=== PATIENT | male | born 1945 | race Caucasian/White ===

== ENCOUNTER 2018-05-20 11:31 | Emergency (ER) | payer MEDICARE, SELFPAY ==
[2018-05-20 11:35] VITALS: BP 108/69; PULSE 82; RESP 16; TEMP 36.2; O2SAT 100; BMI 19.2
[2018-05-20 11:51] VITALS: PULSE 77
--- NOTE | 2018-05-20 12:05 | ED.LOWEXIN ---
HPI - Extremity Injury (Lower) <CRESCENCIO Segundo - Last Filed: 05/20/18 22:25> General Chief Complaint: Extremity Injury, Lower Stated Complaint: fell on right side,bruised Time Seen by Provider: 05/20/18 12:05 History of Present Illness HPI Narrative: 72-year-old male here for complaint of redness and swelling to his right lower extremity status post fall several days ago. He reports increased redness and swelling to the anterior mendiola. He reports increased pain with ambulation and weight-bearing. No fevers no chills. No shortness of breath no chest pain. He denies any other injuries or concerns at this timeframe. No drainage from the leg. Related Data Home Medications Medication Instructions Recorded Confirmed divalproex 1 dose PO DIRECTED 05/20/18 05/24/18 aspirin [Aspir-81] 81 mg PO DAILY 05/24/18 05/24/18 cefdinir 300 mg PO Q12H PRN 05/24/18 05/24/18 ferrous sulfate, dried [Iron 160 mg PO DAILY 05/24/18 05/24/18 (dried)] furosemide 40 mg PO DAILY 05/24/18 05/24/18 levothyroxine 125 mcg PO DAILY 05/24/18 05/24/18 metronidazole [Flagyl] 250 mg PO TID PRN 05/24/18 05/24/18 pregabalin [Lyrica] 50 mg PO BID 05/24/18 05/24/18 vitamin A 10,000 unit PO DAILY 05/24/18 05/24/18 Previous Rx's Medication Instructions Recorded clindamycin HCl 300 mg PO QID #28 cap 05/20/18 Allergies Allergy/AdvReac Type Severity Reaction Status Date / Time shellfish derived Allergy Severe Anaphylaxis Verified 05/24/18 18:24 Review of Systems <CRESCENCIO Segundo - Last Filed: 05/20/18 22:25> Constitutional Denies chills, Denies fever(s), Denies lethargy and Denies weakness Eyes Denies change in vision, Denies eye discharge, Denies irritation and Denies loss of vision ENT Ears, Nose, Mouth, and Throat: Denies change in voice, Denies neck pain and Denies sore throat Cardiovascular Denies chest pain, Denies irregular heart rhythm, Denies lightheadedness, Denies palpitations, Denies dyspnea, Denies dyspnea on exertion and Denies orthopnea Respiratory Denies cough, Denies dyspnea, Denies dyspnea on exertion and Denies wheezing Gastrointestinal Gastrointestinal: Denies abdominal pain, Denies change in bowel habits, Denies diarrhea, Denies nausea and Denies vomiting Genitourinary Denies hematuria, Denies flank pain, Denies urinary incontinence and Denies urinary urgency Musculoskeletal Denies neck pain Comments: Right lower leg discomfort and swelling Integumentary/Breasts Denies pruritus, Denies erythema, Denies rash and Denies wounds Neurologic Denies confusion, Denies loss of vision and Denies weakness Psychiatric Denies anxiety, Denies confusion, Denies depression, Denies homicidal ideation and Denies suicidal ideation Endocrine Denies palpitations Hematologic/Lymphatic Denies easy bruising Allergic/Immunologic Denies wheezing Exam <CRESCENCIO Segundo - Last Filed: 05/20/18 22:25> Initial Vital Signs Initial Vital Signs: Vital Signs Temperature 97.1 F L 05/20/18 11:35 Pulse Rate 82 05/20/18 11:35 Respiratory Rate 16 05/20/18 11:35 Blood Pressure 108/69 05/20/18 11:35 Pulse Oximetry 100 05/20/18 11:35 Const General: cooperative and well developed Nutritional Appearance: well nourished Orientation: alert, awake, oriented x3 and not confused [facility] Mouth: oral mucosae normal and moist mucous membranes Eyes Conjunctivae: conjunctivae normal Sclera: sclerae normal Pupils: PERRL EOM: EOM intact bilaterally Chest Chest: normal inspection of the chest Resp Effort & Inspection: normal respiratory effort, able to speak in complete sentences, no respiratory distress and no use of accessory muscles Auscultation: clear to auscultation bilaterally, no rales, no rhonchi and no wheezes Cardio Rate: regular rate Rhythm: regular rhythm Heart Sounds: no click, no gallops, no murmurs and no rubs Skin General: no rashes or lesions noted, No jaundice and No petechiae Extrem Other: Right lower leg with swelling and erythema to the anterior mendiola slight swelling to the calf area. Tenderness on palpation to the lower extremity to the calf and also to the mendiola. Distal sensation is intact. Area of erythema to the mendiola area with small 5 mm scab to anterior portion with surrounding erythema and swelling no fluctuance or induration. Distal range of motion is intact. Distal pulses intact. <Neida Noel DO - Last Filed: 05/26/18 07:19> Initial Vital Signs Initial Vital Signs: Vital Signs Temperature 97.1 F L 05/20/18 11:35 Pulse Rate 82 05/20/18 11:35 Respiratory Rate 16 05/20/18 11:35 Blood Pressure 108/69 05/20/18 11:35 Pulse Oximetry 100 05/20/18 11:35 Course <CRESCENCIO Segundo - Last Filed: 05/20/18 22:25> Orders Ordered: Discontinued Medications Ibuprofen (Advil) 400 mg PO NOW ONE Stop: 05/20/18 12:17 Last Admin: 05/20/18 12:38 Dose: 400 mg Vital Signs - 8 hr 05/20/18 11:35 05/20/18 11:51 Temperature 97.1 F L Pulse Rate 82 Pulse Rate [Right Dorsalis Pedis] 77 Respiratory Rate 16 Blood Pressure 108/69 Pulse Oximetry 100 <Neida Noel DO - Last Filed: 05/26/18 07:19> Orders Ordered: Discontinued Medications Ibuprofen (Advil) 400 mg PO NOW ONE Stop: 05/20/18 12:17 Last Admin: 05/20/18 12:38 Dose: 400 mg Vital Signs - 8 hr 05/20/18 11:35 05/20/18 11:51 Temperature 97.1 F L Pulse Rate 82 Pulse Rate [Right Dorsalis Pedis] 77 Respiratory Rate 16 Blood Pressure 108/69 Pulse Oximetry 100 MDM - Extremity Injury (Lower) <CRESCENCIO Segundo - Last Filed: 05/20/18 22:25> Imaging Data R tib fib: Radiologist's impression: Signed Patient: Robi Dumont MR#: [id number] : 1945 Acct:[id number] Age/Sex: 72 / M Date of Service: 05/20/18 Loc: ED Accession Number: [id number] Procedure: XR tibia fibula RT 2V Ordering Provider: Trevin Serna PROCEDURE: XR TIBIA FUBULA RT 2V INDICATIONS: Redness and swelling to right lower extremity after fall TECHNIQUE: 2 views of the tibia and fibula were acquired. COMPARISON: None. FINDINGS: Bones: No fractures or dislocations. No suspicious bony lesions. Soft tissues: No suspicious soft tissue calcifications or masses. IMPRESSION: No trauma found. Mild thinning of the medial compartment knee joint interspace consistent with mild degenerative osteoarthritis. Dictated by: Zach Edge M.D. on 05/20/2018 at 12:45 Approved by: Zach Edge M.D. on 05/20/2018 at 12:[address] [facility] Narrative Medical decision making narrative: X-ray of the right tib-fib was obtained was negative for any fractures. Ultrasound of the right lower extremity was obtained due to erythema and swelling to rule out DVT and was negative as well. Signs and symptoms presents as starting cellulitis to the right mendiola area. He is placed on clindamycin. Follow up in the next couple days with primary care provider. [id number] Tylenol Motrin as needed for any discomfort. For any worsening symptoms return to the emergency room. Discharge Plan Departure Patient Disposition: Home, Self-Care Clinical Impression: Cellulitis of leg, right Discharge Date/Time: 05/20/18 13:41 Interventions: ED Discharge Assessment Last Done: 05/20/18 13:39 Instructions: DI for Cellulitis -- Adult Activity Restrictions/Additional Instructions: X-ray of the right lower extremity was obtained and was negative for any fractures. Ultrasound of the right lower extremity was negative for a blood clot. Signs and symptoms presents as cellulitis of the right lower extremity. You have been placed on an antibiotic called clindamycin use as directed. Use [id number] Tylenol or Motrin as needed for any discomfort. Follow up with primary care provider in the next couple days for re-evaluation. For any worsening symptoms return to the emergency room. Prescriptions: New clindamycin HCl 300 mg capsule 300 mg PO QID Qty: 28 RF: 0 No Action furosemide 40 mg Tablet 40 mg PO DAILY RF: 0 metronidazole [Flagyl] 250 mg Tablet 250 mg PO TID PRN (Reason: pouchitis) RF: 0 aspirin [Aspir-81] 81 mg Tablet,Delayed Release (Dr/Ec) 81 mg PO DAILY RF: 0 vitamin A 10,000 unit Capsule 10,000 unit PO DAILY RF: 0 cefdinir 300 mg Capsule 300 mg PO Q12H PRN (Reason: Inflammation) RF: 0 pregabalin [Lyrica] 50 mg Capsule 50 mg PO BID RF: 0 ferrous sulfate, dried [Iron (dried)] 160 mg (50 mg iron) Tablet Extended Release 160 mg PO DAILY RF: 0 levothyroxine 125 mcg Capsule 125 mcg PO DAILY RF: 0 divalproex 500 mg tablet,delayed release (DR/EC) 1 dose PO DIRECTED RF: 0 Referrals: [facility] [Provider Group] <Neida Noel DO - Last Filed: 05/26/18 07:19> Cosign ED Attending Cosignature Attestation: I was immediately available in the department for consultation. Documentation has been reviewed. I agree with assessment and plan.
--- NOTE | 2018-05-20 12:12 | DI.US.S_ITS ---
PROCEDURE: US PERIPH VENOUS LOW EXTREM RT INDICATIONS: REDNESS, EDEMA TECHNIQUE: Real-time imaging, as well as color and pulse Doppler interrogation, were performed of the lower extremity deep veins from the inguinal ligament to the popliteal fossa. COMPARISON: None. FINDINGS: The deep veins are normally compressible, and free of intraluminal thrombus. Color and pulse Doppler demonstrate normal phasic intraluminal flow. There is normal augmentation response to distal compression maneuver. Note is made of a 3.8 x 0.8 x 4.5 cm avascular fluid collection at the inferior area of the tibial diaphysis, bruising, hematoma. IMPRESSION: No DVT found. Soft tissue bruising/hematoma as discussed above, anterior tibial diaphysis area. Superimposed infection could be present. Dictated by: Zach Edge M.D. on 05/20/2018 at 13:11 Approved by: Zach Edge M.D. on 05/20/2018 at 13:12
--- NOTE | 2018-05-20 12:12 | DI.RAD.S_ITS ---
PROCEDURE: XR TIBIA FUBULA RT 2V INDICATIONS: Redness and swelling to right lower extremity after fall TECHNIQUE: 2 views of the tibia and fibula were acquired. COMPARISON: None. FINDINGS: Bones: No fractures or dislocations. No suspicious bony lesions. Soft tissues: No suspicious soft tissue calcifications or masses. IMPRESSION: No trauma found. Mild thinning of the medial compartment knee joint interspace consistent with mild degenerative osteoarthritis. Dictated by: Zach Edge M.D. on 05/20/2018 at 12:45 Approved by: Zach Edge M.D. on 05/20/2018 at 12:45
[2018-05-20] MEDS: IBUPROFEN 400 MG TABLET PO (12:38)
[2018-05-20 13:39] VITALS: BP 104/64; PULSE 78; RESP 20; TEMP 36.9; O2SAT 100
== END 2018-05-20 13:41 | disposition home or self-care (01) ==
PROVIDERS: Emergency Provider Nurse Practitioner Family
DX: L03.115 Cellulitis of right lower limb (principal); W19.XXXA Unspecified fall, initial encounter
CPT/HCPCS: 73590; 93971; 99282; 99283

== ENCOUNTER 2018-05-24 17:57 | Emergency (ER) | payer MEDICARE, SELFPAY ==
[2018-05-24 18:10] VITALS: BP 97/54; PULSE 70; RESP 18; TEMP 36.4; O2SAT 100; BMI 19.3
--- NOTE | 2018-05-24 18:15 | ED.EXTPRO ---
HPI - Extremity Problem General Chief complaint: Extremity Problem,Nontraumatic Stated complaint: CELLULITIS OF RIGHT LEG, NOT GETTING BETTER Time Seen by Provider: 05/24/18 18:04 Source: patient and family Mode of arrival: ambulatory Limitations: no limitations History of Present Illness HPI Narrative: 72-year-old male returns to the emergency department for evaluation right lower extremity cellulitis. He was seen and evaluated here on May 20 and placed on clindamycin after a negative ultrasound for DVT. Patient had bumped mendiola on a hard object and soon thereafter developed some erythema, pain and swelling. Since then the patient reports improved redness and perhaps swelling but has continued if not worse pain in his calf. He denies fever or chills MD Complaint: extremity pain and extremity swelling Onset (ago): day(s) Pain Consistency: constant Location: right Quality: burning and aching Radiation: none Relieving factors: rest Exacerbating factors: weight bearing, walking and exertion Associated symptoms: denies other symptoms Related Data Home Medications Medication Instructions Recorded Confirmed divalproex 1 dose PO DIRECTED 05/20/18 05/24/18 aspirin [Aspir-81] 81 mg PO DAILY 05/24/18 05/24/18 cefdinir 300 mg PO Q12H PRN 05/24/18 05/24/18 ferrous sulfate, dried [Iron 160 mg PO DAILY 05/24/18 05/24/18 (dried)] furosemide 40 mg PO DAILY 05/24/18 05/24/18 levothyroxine 125 mcg PO DAILY 05/24/18 05/24/18 metronidazole [Flagyl] 250 mg PO TID PRN 05/24/18 05/24/18 pregabalin [Lyrica] 50 mg PO BID 05/24/18 05/24/18 vitamin A 10,000 unit PO DAILY 05/24/18 05/24/18 Previous Rx's Medication Instructions Recorded clindamycin HCl 300 mg PO QID #28 cap 05/20/18 Allergies Allergy/AdvReac Type Severity Reaction Status Date / Time shellfish derived Allergy Severe Anaphylaxis Verified 05/24/18 18:24 Review of Systems Review of Systems All systems reviewed & are unremarkable except as noted in HPI and below Constitutional Denies chills, Denies fever(s), Denies lethargy and Denies weakness Eyes Denies change in vision, Denies eye discharge, Denies irritation and Denies loss of vision ENT Ears, Nose, Mouth, and Throat: Denies change in voice, Denies neck pain and Denies sore throat Cardiovascular Denies chest pain, Denies irregular heart rhythm, Denies lightheadedness, Denies palpitations, Denies dyspnea, Denies dyspnea on exertion and Denies orthopnea Respiratory Denies cough, Denies dyspnea, Denies dyspnea on exertion and Denies wheezing Gastrointestinal Gastrointestinal: Denies abdominal pain, Denies change in bowel habits, Denies diarrhea, Denies nausea and Denies vomiting Genitourinary Denies hematuria, Denies flank pain, Denies urinary incontinence and Denies urinary urgency Musculoskeletal Denies neck pain Integumentary/Breasts Denies pruritus, Reports erythema, Denies rash, Reports skin pain, Reports skin swelling and Reports wounds Neurologic Denies confusion, Denies loss of vision and Denies weakness Psychiatric Denies anxiety, Denies confusion, Denies depression, Denies homicidal ideation and Denies suicidal ideation Endocrine Denies palpitations Hematologic/Lymphatic Denies easy bruising Allergic/Immunologic Denies wheezing [facility] Medical History Hypothyroid (Acute) Lymphoma (Acute) Surgical History History of ileostomy (Acute) Social History Smoking Status: Never smoker Exam Narrative Exam Narrative: Pleasant 72-year-old male in mild distress Initial Vital Signs Initial Vital Signs: Vital Signs Temperature 97.5 F L 05/24/18 18:10 Pulse Rate 70 05/24/18 18:10 Respiratory Rate 18 05/24/18 18:10 Blood Pressure 97/54 L 05/24/18 18:10 Pulse Oximetry 100 05/24/18 18:10 Const General: cooperative, well developed and anxious Nutritional Appearance: well nourished Orientation: alert, awake, oriented x3 and not confused [facility] Head: normocephalic and atraumatic Ears: external ears normal and TM's normal bilaterally Nose: external nose normal and No nasal discharge Face and sinus: sinuses nontender, face symmetric, no sinus tenderness and No dry mucous membranes Mouth: oral mucosae normal and moist mucous membranes Teeth and gingiva: dentition normal Throat: tonsils normal and uvula midline Resp Effort & Inspection: normal respiratory effort, able to speak in complete sentences, no respiratory distress and no use of accessory muscles Auscultation: clear to auscultation bilaterally, no rales, no rhonchi and no wheezes GI Inspection: non-distended Palpation: soft, no hepatosplenomegaly, No guarding, No pulsatile mass and No tender Auscultation: normal bowel sounds Skin General: erythema, induration and warm Wounds: no wounds Other: Mild erythema to the anterior mendiola with a central 3 x 3 cm indurated hematoma versus abscess. There is no lymphangitis Neuro General: alert, awake and oriented x3 Extrem Right lower extremity: lower leg (Central mendiola has a 3 x 3 cm area of induration without fluctuance which is hematoma versus abscess. There is some mild warmth and erythema to the anterior mendiola. Patient is resistant to allow deep palpation to his calf as it hurts.) Course Orders Ordered: ED Orders 05/24/18 18:33 US periph venous low extrem rt Stat 05/24/18 18:43 Basic Metabolic Panel Stat Complete Blood Count AUTO DIFF Stat Erythrocyte Sedimentation Rate Stat Lactate (Lactic Acid) Stat Procalcitonin Stat 05/24/18 19:00 Blood Culture Stat Vital Signs - 8 hr 05/24/18 18:10 05/24/18 20:12 Temperature 97.5 F L 97.0 F L Pulse Rate 70 64 Respiratory Rate 18 14 Blood Pressure 97/54 L Blood Pressure [Left Arm] 91/56 L Pulse Oximetry 100 96 MDM - Extremity (Nontraumatic) Lab Data Result diagrams: 05/24/18 18:43 05/24/18 18:43 Lab Results 05/24/18 05/24/18 05/24/18 Range/Units 18:43 18:43 18:43 WBC 5.2 (4.5-11.0) X10^3/uL RBC 3.27 L (4.5-5.9) X10^6/uL Hgb 10.9 L (13.5-17.5) g/dL Hct 32.7 L (41-53) % MCV 99.9 (80-100) fL MCH 33.3 (26-34) PG MCHC 33.3 (30-36) % RDW 14.5 (11.6-14.8) % Plt Count 199 (150-400) X10^3/uL Neut % (Auto) 34.0 L (50-75) % Lymph % (Auto) 45.8 H (25-40) % Kershaw % (Auto) 15.2 H (3-14) % Eos % (Auto) 4.8 H (2-4) % Baso % (Auto) 0.2 (0-2) % Neut # (Auto) 1800 L (5620-0727) /uL ESR 57 H (0-15) MM/HR Sodium 143 (137-145) mmol/L Potassium 4.3 (3.4-5.1) mmol/L Chloride 111 H (98-107) mmol/L Carbon Dioxide 24 (22-32) mmol/L BUN 25 H (9-20) mg/dL Creatinine 1.00 (0.66-1.25) mg/dL Estimated GFR > 60.0 (>60) mL/min BUN/Creatinine Ratio 25.0 H (6-22) Glucose 91 (80-110) mg/dL Lactate (0.7-2.1) mmol/L Calcium 9.0 (8.4-10.2) mg/dL Procalcitonin 0.09 (<0.5) ng/mL 05/24/18 Range/Units 18:43 WBC (4.5-11.0) X10^3/uL RBC (4.5-5.9) X10^6/uL Hgb (13.5-17.5) g/dL Hct (41-53) % MCV (80-100) fL MCH (26-34) PG MCHC (30-36) % RDW (11.6-14.8) % Plt Count (150-400) X10^3/uL Neut % (Auto) (50-75) % Lymph % (Auto) (25-40) % [place]haw % (Auto) (3-14) % Eos % (Auto) (2-4) % Baso % (Auto) (0-2) % Neut # (Auto) (5177-9622) /uL ESR (0-15) MM/HR Sodium (137-145) mmol/L Potassium (3.4-5.1) mmol/L Chloride (98-107) mmol/L Carbon Dioxide (22-32) mmol/L BUN (9-20) mg/dL Creatinine (0.66-1.25) mg/dL Estimated GFR (>60) mL/min BUN/Creatinine Ratio (6-22) Glucose (80-110) mg/dL Lactate 1.6 (0.7-2.1) mmol/L Calcium (8.4-10.2) mg/dL Procalcitonin (<0.5) ng/mL Imaging Data Venous US: Radiologist's impression: PROCEDURE: US [facility] VENOUS LOW EXTREM RT INDICATIONS: worsening pain, swelling after injury, now in calf TECHNIQUE: Real-time imaging, as well as color and pulse Doppler interrogation, were performed of the lower extremity deep veins from the inguinal ligament to the popliteal fossa. COMPARISON: [facility], [place], [place] [facility] VENOUS LOW EXTREM RT, 05/20/2018, 12:41. FINDINGS: The deep veins are normally compressible, and free of intraluminal thrombus. Color and pulse Doppler demonstrate normal phasic intraluminal flow. There is normal augmentation response to distal compression maneuver. There is a complex fluid collection without vascularity anterior to the mendiola measuring 3.5 x 0.7 x 3.2 cm (previously 3.8 x 0.8 x 4.5 mm on 05/20/2018). IMPRESSION: 1. No DVT in the right lower extremity. 2. A complex, non-vascular fluid collection anterior to the mendiola, most likely a hematoma. It has slightly decreased compared to 05/20/2018. Dictated by: Wendy Woo M.D. on 05/24/2018 at 19:30 Approved by: Wendy Woo M.D. on 05/24/2018 at 19:42 MDM Narrative Medical decision making narrative: Erythema and swelling have improved per patient and . Hematoma is decreased in size her ultrasound and no DVT or other deep lying process is noted on ultrasound. Labs are largely unremarkable. There are likely multiple items contributing to his ongoing pain including the injury, subsequent cellulitis, and perhaps even swelling and inflammation due to a change in his gait. Patient is not local and will have difficulty in followup, therefore referral faxed to our wound care for follow-up. We discussed the possibility of changing antibiotics but I was reluctant given the improvement of erythema and swelling Discharge Plan Departure Patient Disposition: Home, Self-Care Clinical Impression: Cellulitis of leg, right, Hematoma Discharge Date/Time: 05/24/18 20:39 Interventions: ED Discharge Assessment Last Done: 05/24/18 20:31 Instructions: DI for Cellulitis -- Adult Activity Restrictions/Additional Instructions: *You have been diagnosed with [ hematoma and improving cellulitis right lower extremity ] *What to do: * continue to take medications as directed *Follow up with Wound Care in 2-3 days, call for an appointment. Let them know you were seen in the Emergency Department and that we ask that you be seen in follow up *Return to ER if you should have any new, worsening or concerning symptoms, such as [ fever, vomiting, worsening pain or swelling] Prescriptions: No Action furosemide 40 mg Tablet 40 mg PO DAILY RF: 0 metronidazole [Flagyl] 250 mg Tablet 250 mg PO TID PRN (Reason: pouchitis) RF: 0 aspirin [Aspir-81] 81 mg Tablet,Delayed Release (Dr/Ec) 81 mg PO DAILY RF: 0 vitamin A 10,000 unit Capsule 10,000 unit PO DAILY RF: 0 cefdinir 300 mg Capsule 300 mg PO Q12H PRN (Reason: Inflammation) RF: 0 pregabalin [Lyrica] 50 mg Capsule 50 mg PO BID RF: 0 ferrous sulfate, dried [Iron (dried)] 160 mg (50 mg iron) Tablet Extended Release 160 mg PO DAILY RF: 0 levothyroxine 125 mcg Capsule 125 mcg PO DAILY RF: 0 divalproex 500 mg tablet,delayed release (DR/EC) 1 dose PO DIRECTED RF: 0 clindamycin HCl 300 mg capsule 300 mg PO QID Qty: 28 RF: 0
--- NOTE | 2018-05-24 18:33 | DI.US.S_ITS ---
PROCEDURE: US PERIP VENOUS LOW EXTREM RT INDICATIONS: worsening pain, swelling after injury, now in calf TECHNIQUE: Real-time imaging, as well as color and pulse Doppler interrogation, were performed of the lower extremity deep veins from the inguinal ligament to the popliteal fossa. COMPARISON: [facility], , [place] [facility] VENOUS LOW EXTREM RT, 05/20/2018, 12:41. FINDINGS: The deep veins are normally compressible, and free of intraluminal thrombus. Color and pulse Doppler demonstrate normal phasic intraluminal flow. There is normal augmentation response to distal compression maneuver. There is a complex fluid collection without vascularity anterior to the mendiola measuring 3.5 x 0.7 x 3.2 cm (previously 3.8 x 0.8 x 4.5 mm on 05/20/2018). IMPRESSION: 1. No DVT in the right lower extremity. 2. A complex, non-vascular fluid collection anterior to the mendiola, most likely a hematoma. It has slightly decreased compared to 05/20/2018. Dictated by: Wendy Woo M.D. on 05/24/2018 at 19:30 Approved by: Wendy Woo M.D. on 05/24/2018 at 19:42
[2018-05-24 18:54] LABS: Add Manual Diff / Slide Review NO; Basophils Percent Auto 0.2 % (0-2); Eosinophils Percent Auto 4.8 % (2-4); Hematocrit 32.7 % (41-53); Hemoglobin 10.9 g/dL (13.5-17.5); Lymphocytes Percent Auto 45.8 % (25-40); Mean Corpuscular HGB Conc 33.3 % (30-36); Mean Corpuscular Hemoglobin 33.3 PG (26-34); Mean Corpuscular Volume 99.9 fL (80-100); Monocytes Percent Auto 15.2 % (3-14); Neutrophils Absolute Auto 1800 /uL (3000-5900); Platelet Count 199 X10^3/uL (150-400); Red Blood Cell Count 3.27 X10^6/uL (4.5-5.9); Red Cell Distribution Width 14.5 % (11.6-14.8); White Blood Cell Count 5.2 X10^3/uL (4.5-11.0)
[2018-05-24 19:04] LABS: Lactate (Lactic Acid) 1.6 mmol/L (0.7-2.1)
[2018-05-24 19:05] LABS: Blood Urea Nitrogen 25 mg/dL (9-20); Carbon Dioxide 24 mmol/L (22-32); Chloride 111 mmol/L (98-107); Estimated Glomerular Filt Rate > 60.0 mL/min (>60); Glucose 91 mg/dL (80-110); HEMOLYSIS < 15 (0-50); Potassium 4.3 mmol/L (3.4-5.1); Sodium 143 mmol/L (137-145)
[2018-05-24 19:13] LABS: Erythrocyte Sedimentation Rate 57 MM/HR (0-15)
[2018-05-24 19:20] LABS: Procalcitonin 0.09 ng/mL (<0.5)
[2018-05-24 20:12] VITALS: BP 91/56; PULSE 64; RESP 14; TEMP 36.1; O2SAT 96
--- NOTE | 2018-05-24 20:42 | ED_ITS ---
HPI - Extremity Problem General Chief complaint: Extremity Problem,Nontraumatic Stated complaint: CELLULITIS OF RIGHT LEG, NOT GETTING BETTER Time Seen by Provider: 05/24/18 18:04 Source: patient and family Mode of arrival: ambulatory Limitations: no limitations History of Present Illness HPI Narrative: 72-year-old male returns to the emergency department for evaluation right lower extremity cellulitis. He was seen and evaluated here on May 20 and placed on clindamycin after a negative ultrasound for DVT. Patient had bumped mendiola on a hard object and soon thereafter developed some erythema, pain and swelling. Since then the patient reports improved redness and perhaps swelling but has continued if not worse pain in his calf. He denies fever or chills MD Complaint: extremity pain and extremity swelling Onset (ago): day(s) Pain Consistency: constant Location: right Quality: burning and aching Radiation: none Relieving factors: rest Exacerbating factors: weight bearing, walking and exertion Associated symptoms: denies other symptoms Related Data Home Medications Medication Instructions Recorded Confirmed divalproex 1 dose PO DIRECTED 05/20/18 05/24/18 aspirin [Aspir-81] 81 mg PO DAILY 05/24/18 05/24/18 cefdinir 300 mg PO Q12H PRN 05/24/18 05/24/18 ferrous sulfate, dried [Iron 160 mg PO DAILY 05/24/18 05/24/18 (dried)] furosemide 40 mg PO DAILY 05/24/18 05/24/18 levothyroxine 125 mcg PO DAILY 05/24/18 05/24/18 metronidazole [Flagyl] 250 mg PO TID PRN 05/24/18 05/24/18 pregabalin [Lyrica] 50 mg PO BID 05/24/18 05/24/18 vitamin A 10,000 unit PO DAILY 05/24/18 05/24/18 Previous Rx's Medication Instructions Recorded clindamycin HCl 300 mg PO QID #28 cap 05/20/18 Allergies Allergy/AdvReac Type Severity Reaction Status Date / Time shellfish derived Allergy Severe Anaphylaxis Verified 05/24/18 18:24 Review of Systems Review of Systems All systems reviewed & are unremarkable except as noted in HPI and below Constitutional Denies chills, Denies fever(s), Denies lethargy and Denies weakness Eyes Denies change in vision, Denies eye discharge, Denies irritation and Denies loss of vision ENT Ears, Nose, Mouth, and Throat: Denies change in voice, Denies neck pain and Denies sore throat Cardiovascular Denies chest pain, Denies irregular heart rhythm, Denies lightheadedness, Denies palpitations, Denies dyspnea, Denies dyspnea on exertion and Denies orthopnea Respiratory Denies cough, Denies dyspnea, Denies dyspnea on exertion and Denies wheezing Gastrointestinal Gastrointestinal: Denies abdominal pain, Denies change in bowel habits, Denies diarrhea, Denies nausea and Denies vomiting Genitourinary Denies hematuria, Denies flank pain, Denies urinary incontinence and Denies urinary urgency Musculoskeletal Denies neck pain Integumentary/Breasts Denies pruritus, Reports erythema, Denies rash, Reports skin pain, Reports skin swelling and Reports wounds Neurologic Denies confusion, Denies loss of vision and Denies weakness Psychiatric Denies anxiety, Denies confusion, Denies depression, Denies homicidal ideation and Denies suicidal ideation Endocrine Denies palpitations Hematologic/Lymphatic Denies easy bruising Allergic/Immunologic Denies wheezing [facility] Medical History Hypothyroid (Acute) Lymphoma (Acute) Surgical History History of ileostomy (Acute) Social History Smoking Status: Never smoker Exam Narrative Exam Narrative: Pleasant 72-year-old male in mild distress Initial Vital Signs Initial Vital Signs: Vital Signs Temperature 97.5 F L 05/24/18 18:10 Pulse Rate 70 05/24/18 18:10 Respiratory Rate 18 05/24/18 18:10 Blood Pressure 97/54 L 05/24/18 18:10 Pulse Oximetry 100 05/24/18 18:10 Const General: cooperative, well developed and anxious Nutritional Appearance: well nourished Orientation: alert, awake, oriented x3 and not confused [facility] Head: normocephalic and atraumatic Ears: external ears normal and TM's normal bilaterally Nose: external nose normal and No nasal discharge Face and sinus: sinuses nontender, face symmetric, no sinus tenderness and No dry mucous membranes Mouth: oral mucosae normal and moist mucous membranes Teeth and gingiva: dentition normal Throat: tonsils normal and uvula midline Resp Effort & Inspection: normal respiratory effort, able to speak in complete sentences, no respiratory distress and no use of accessory muscles Auscultation: clear to auscultation bilaterally, no rales, no rhonchi and no wheezes GI Inspection: non-distended Palpation: soft, no hepatosplenomegaly, No guarding, No pulsatile mass and No tender Auscultation: normal bowel sounds Skin General: erythema, induration and warm Wounds: no wounds Other: Mild erythema to the anterior mendiola with a central 3 x 3 cm indurated hematoma versus abscess. There is no lymphangitis Neuro General: alert, awake and oriented x3 Extrem Right lower extremity: lower leg (Central mendiola has a 3 x 3 cm area of induration without fluctuance which is hematoma versus abscess. There is some mild warmth and erythema to the anterior mendiola. Patient is resistant to allow deep palpation to his calf as it hurts.) Course Orders Ordered: ED Orders 05/24/18 18:33 US periph venous low extrem rt Stat 05/24/18 18:43 Basic Metabolic Panel Stat Complete Blood Count AUTO DIFF Stat Erythrocyte Sedimentation Rate Stat Lactate (Lactic Acid) Stat Procalcitonin Stat 05/24/18 19:00 Blood Culture Stat Vital Signs - 8 hr 05/24/18 18:10 05/24/18 20:12 Temperature 97.5 F L 97.0 F L Pulse Rate 70 64 Respiratory Rate 18 14 Blood Pressure 97/54 L Blood Pressure [Left Arm] 91/56 L Pulse Oximetry 100 96 MDM - Extremity (Nontraumatic) Lab Data Result diagrams: 05/24/18 18:43 05/24/18 18:43 Lab Results 05/24/18 05/24/18 05/24/18 Range/Units 18:43 18:43 18:43 WBC 5.2 (4.5-11.0) X10^3/uL RBC 3.27 L (4.5-5.9) X10^6/uL Hgb 10.9 L (13.5-17.5) g/dL Hct 32.7 L (41-53) % MCV 99.9 (80-100) fL MCH 33.3 (26-34) PG MCHC 33.3 (30-36) % RDW 14.5 (11.6-14.8) % Plt Count 199 (150-400) X10^3/uL Neut % (Auto) 34.0 L (50-75) % Lymph % (Auto) 45.8 H (25-40) % [place] % (Auto) 15.2 H (3-14) % Eos % (Auto) 4.8 H (2-4) % Baso % (Auto) 0.2 (0-2) % Neut # (Auto) 1800 L (0842-8495) /uL ESR 57 H (0-15) MM/HR Sodium 143 (137-145) mmol/L Potassium 4.3 (3.4-5.1) mmol/L Chloride 111 H (98-107) mmol/L Carbon Dioxide 24 (22-32) mmol/L BUN 25 H (9-20) mg/dL Creatinine 1.00 (0.66-1.25) mg/dL Estimated GFR > 60.0 (>60) mL/min BUN/Creatinine Ratio 25.0 H (6-22) Glucose 91 (80-110) mg/dL Lactate (0.7-2.1) mmol/L Calcium 9.0 (8.4-10.2) mg/dL Procalcitonin 0.09 (<0.5) ng/mL 05/24/18 Range/Units 18:43 WBC (4.5-11.0) X10^3/uL RBC (4.5-5.9) X10^6/uL Hgb (13.5-17.5) g/dL Hct (41-53) % MCV (80-100) fL MCH (26-34) PG MCHC (30-36) % RDW (11.6-14.8) % Plt Count (150-400) X10^3/uL Neut % (Auto) (50-75) % Lymph % (Auto) (25-40) % [place] % (Auto) (3-14) % Eos % (Auto) (2-4) % Baso % (Auto) (0-2) % Neut # (Auto) (1446-3758) /uL ESR (0-15) MM/HR Sodium (137-145) mmol/L Potassium (3.4-5.1) mmol/L Chloride (98-107) mmol/L Carbon Dioxide (22-32) mmol/L BUN (9-20) mg/dL Creatinine (0.66-1.25) mg/dL Estimated GFR (>60) mL/min BUN/Creatinine Ratio (6-22) Glucose (80-110) mg/dL Lactate 1.6 (0.7-2.1) mmol/L Calcium (8.4-10.2) mg/dL Procalcitonin (<0.5) ng/mL Imaging Data Venous US: Radiologist's impression: PROCEDURE: US [facility] LOW EXTREM RT INDICATIONS: worsening pain, swelling after injury, now in calf TECHNIQUE: Real-time imaging, as well as color and pulse Doppler interrogation, were performed of the lower extremity deep veins from the inguinal ligament to the popliteal fossa. COMPARISON: [facility], [place], US [facility] LOW EXTREM RT, 05/20/2018, 12: 41. FINDINGS: The deep veins are normally compressible, and free of intraluminal thrombus. Color and pulse Doppler demonstrate normal phasic intraluminal flow. There is normal augmentation response to distal compression maneuver. There is a complex fluid collection without vascularity anterior to the mendiola measuring 3.5 x 0.7 x 3.2 cm (previously 3.8 x 0.8 x 4.5 mm on 05/20/2018). IMPRESSION: 1. No DVT in the right lower extremity. 2. A complex, non-vascular fluid collection anterior to the mendiola, most likely a hematoma. It has slightly decreased compared to 05/20/2018. Dictated by: Wendy Woo M.D. on 05/24/2018 at 19:30 Approved by: Wendy Woo M.D. on 05/24/2018 at 19:42 MDM Narrative Medical decision making narrative: Erythema and swelling have improved per patient and . Hematoma is decreased in size her ultrasound and no DVT or other deep lying process is noted on ultrasound. Labs are largely unremarkable. There are likely multiple items contributing to his ongoing pain including the injury, subsequent cellulitis, and perhaps even swelling and inflammation due to a change in his gait. Patient is not local and will have difficulty in followup, therefore referral faxed to our wound care for follow- up. We discussed the possibility of changing antibiotics but I was reluctant given the improvement of erythema and swelling Discharge Plan Departure Patient Disposition: Home, Self-Care Clinical Impression: Cellulitis of leg, right, Hematoma Discharge Date/Time: 05/24/18 20:39 Interventions: ED Discharge Assessment Last Done: 05/24/18 20:31 Instructions: DI for Cellulitis -- Adult Activity Restrictions/Additional Instructions: *You have been diagnosed with [ hematoma and improving cellulitis right lower extremity ] *What to do: * continue to take medications as directed *Follow up with Wound Care in 2-3 days, call for an appointment. Let them know you were seen in the Emergency Department and that we ask that you be seen in follow up *Return to ER if you should have any new, worsening or concerning symptoms , such as [ fever, vomiting, worsening pain or swelling] Prescriptions: No Action furosemide 40 mg Tablet 40 mg PO DAILY RF: 0 metronidazole [Flagyl] 250 mg Tablet 250 mg PO TID PRN (Reason: pouchitis) RF: 0 aspirin [Aspir-81] 81 mg Tablet,Delayed Release (Dr/Ec) 81 mg PO DAILY RF: 0 vitamin A 10,000 unit Capsule 10,000 unit PO DAILY RF: 0 cefdinir 300 mg Capsule 300 mg PO Q12H PRN (Reason: Inflammation) RF: 0 pregabalin [Lyrica] 50 mg Capsule 50 mg PO BID RF: 0 ferrous sulfate, dried [Iron (dried)] 160 mg (50 mg iron) Tablet Extended Release 160 mg PO DAILY RF: 0 levothyroxine 125 mcg Capsule 125 mcg PO DAILY RF: 0 divalproex 500 mg tablet,delayed release (DR/EC) 1 dose PO DIRECTED RF: 0 clindamycin HCl 300 mg capsule 300 mg PO QID Qty: 28 RF: 0
== END 2018-05-24 20:39 | disposition home or self-care (01) ==
PROVIDERS: Emergency Provider Emergency Medicine
DX: L03.115 Cellulitis of right lower limb (principal); S80.11XA Contusion of right lower leg, initial encounter
CPT/HCPCS: 36415; 36591; 80048; 83605; 84145; 85025; 85651; 87040; 93971; 99283; 99284

== ENCOUNTER → 2018-05-28 13:21 | Outpatient (CLI) | payer MEDICARE, SELFPAY ==
--- NOTE | 2018-05-28 | OV.WND_ITS ---
Progress Note Details Patient Name: Robi Dumont Patient Number: [id number] PatientPatientDate: 05/28/2018 Clinician: Shelli Olivera Physician / Scrap Worker: Jaden Rosado SUBJECTIVE Chief Complaint This information was obtained from the patient Allergies Shellfish Containing Products HPI This information was obtained from the patient 05/28/18. Seen by Dr. Rosado. The patient's new to our clinic and presents with a right lower leg hematoma that he's just completed a course of clindamycin for due to cellulitis of the leg presumed associated with the hematoma. He wrapped the leg with an TONY bandage and now has a large blister just proximal to the hematoma. He doesn't feel the antibiotics have been very effective and he reports pain and swelling in the leg but no fevers or feeling unwell otherwise. Family History This information was obtained from the patient Cancer - Mother, Sibling, Child, Heart Disease - Father, Hypertension - Father, Mental Illness - Paternal Grandparents Social History This information was obtained from the patient Alcohol Use - Occasional, Caffeine Use - 1-2 cup a day, Children - 3, Lives in - Private home, Marital Status - , Retired - Industrial equipment sales Past Medical History This information was obtained from the patient Patient has a medical history of: Ulcerative colitis Kidney Stones Thyroid Cancer Lymphoma Cataracts Bipolar Melanoma Surgical History This information was obtained from the patient Patient has a surgical history of: Bowel Resection Illeostomy Placed, revision Complaints and Symptoms This information was obtained from the patient Patient complains of: General Notes: I have reviewed and concur with the Review of Systems and Past Family Social History documents completed by the clinician, I have reviewed and concur with the Wound Assessment document completed by the clinician Cardiovascular (Central/Peripheral): Lower extremity (leg) swelling Hematologic/Lymphatic: Bleeding Tendency Integumentary (Hair/Skin/Nails): Open Sore Prior Wound History: Bleeding, Erythema, Pain Patient denies complaints or symptoms related to: Cardiovascular (Central/Peripheral): Intermittent Claudication, Lower extremity (leg) resting pain Constitutional Symptoms (General Health): Chills, Fever Ear/Nose/Mouth/Throat: Hearing Loss / Aid Hematologic/Lymphatic: Bleeding / Clotting Disorders Neurological: Loss of Protective Sensation Psychiatric: Memory Loss Respiratory: Shortness of Breath General Notes: Up to date Additional Information Does patient have a history of Cancer? Yes? Complete all questions.: Yes Location of Cancer: Thyroid, Face Patient underwent Radiation Treatment? If yes, answer question below.: Yes Medications divalproex ER 500 mg tablet,extended release 24 hr oral tablet extended release 24 hr oral twice daily Lyrica 50 mg capsule oral capsule oral once daily iron ER 159 mg (45 mg iron) tablet,extended release oral tablet extended release oral once daily furosemide 40 mg tablet oral tablet oral once daily aspirin 81 mg tablet,delayed release oral tablet,delayed release (DR/EC) oral once daily Klor-Con M20 mEq tablet,extended release oral tablet,ER particles/crystals oral once daily levothyroxine 125 mcg tablet oral tablet oral once daily vitamin A 10,000 unit capsule oral 2 2 capsule oral once daily doxycycline hyclate 100 mg capsule oral capsule oral twice daily for 7 days for cellulitis OBJECTIVE Constitutional Vital signs reviewed and noted. Well developed. Alert. Clean appearing.. Height/ Length: 70 in (177.8 cm), Weight: 145 lbs (65.91 kgs), BMI: 20.8, Temperature: 98.4 ?F (36.89 ?C), Pulse: 64 bpm, Respiratory Rate: 16 breaths/min, Blood Pressure: 101/63 mmHg, Pulse Oximetry: 100 %. Ears, Nose, Mouth, and Throat: No clinically significant hearing loss on informal examination. Respiratory: No respiratory distress. Even respirations and without use of accessory muscles.. Cardiovascular: Pedal pulses 2+ on affected limb. 1+ right lower extremity edema. Musculoskeletal: Right anterior lower leg approx 5x5cm swelling, warm, mild erythema, tender; no skin breakdown. Integumentary (Hair, Skin) Mild periwound erythema with warmth. Refer to appropriate clinician wound documentation for this visit; right lower leg wound extends to subcut with base partially covered with pink granulation, remainder fibrin and slough. Wound #1 Right, Anterior Leg is an acute Full Thickness Cellulitis and has received a status of Not Healed. Initial wound encounter measurements are 0.1cm length x 0.1cm width x 0.1cm depth, with an area of 0.01 sq cm and a volume of 0.001 cubic cm. No tunneling has been noted. No sinus tract has been noted. No undermining has been noted. There is a moderate amount of serous drainage noted which has no odor. The patient reports a wound pain of level 0/10. The wound margin is attached. Wound bed has No epithelialization, Yes eschar, Yes slough, No granulation. The periwound skin moisture is normal. The periwound skin exhibited: Edema, Erythema, Hemosiderosis. The temperature of the periwound skin is Warm. Periwound skin presents with s/s of infection. Confirmation Description and Treatment Plan is: Signs and Symptoms Present. Local Pulse is Palpable. ASSESSMENT Active Problems ICD-10 (Encounter Diagnosis) S81.801D - Unspecified open wound, right lower leg, subsequent encounter (Encounter Diagnosis) M79.9 - Soft tissue disorder, unspecified (Encounter Diagnosis) L03.115 - Cellulitis of right lower limb PROCEDURES Wound #1 Wound #1 (Cellulitis) is located on the right, anterior leg. A selective debridement with a total area debrided of 8 sq cm was performed by Jaden Rosado MD. Dermis and Epidermis were removed along with devitalized tissue: exudate. The following instrument(s) were used: forceps and scissors. Pain control was achieved using N/A. A time out was conducted prior to the start of the procedure. A minimal amount of bleeding was controlled with n/ a. The procedure was tolerated well with a pain level of 0 throughout and a pain level of 0 following the procedure. Post Debridement Measurements: 4cm length x 2cm width x 0.3cm depth; with an area of 8 sq cm and a volume of 2.4 cubic cm; PLAN Wound Orders: Wound #1 Right, Anterior Leg Anesthetic Topical Xylocaine to wound bed. - In clinic only Cleanser Cleanse Wound: - Normal saline in clinic. May use distilled water at home. Topical Treatments Antibiotic/Antimicrobial Ointment/Cream. - Triple antibiotic ointment. Dressings Primary dressing: - Bordered foam Change Dressing: - Every other day Additional Orders: Follow-Up Appointments Return Appointment: - - One week Other information: If you develop fever, chills, increased pain, drainage, redness or swelling please call our office. If after hours, respond to the ER. Should you experience any significant changes in your wound(s) or have any questions regarding your home care instructions please contact the wound center @ [phone]. If after hours, contact your primary care physician or go to the hospital emergency room. Scribing Attestation I attest, as the nurse, that I scribed these orders for the physician. Laboratory: Culture Wound Medications prescribed: doxycycline hyclate - oral 100 mg capsule twice daily for 7 days for cellulitis starting 05/28/2018 General Notes: Please merchandise pickup/receiving associate antibiotics and take as prescribed. We will call with any positive wound cultures requiring a change in antibiotics. I've reviewed the clinician's documentation and agree with the evaluation and plan as written. In addition the patient's wound demonstrates evidence of non-viable devitalized tissue which will continue to benefit from sharp debridement to help promote granulation and expedite healing. Also, I've exised the blister and cultured the base due to the surrounding erythema and cellulitis. I've also changed his antibiotics to doxycycline and will adjust them pending the wound culture. Electronic Signature(s) Signed By: Date: Jaden Rosado MD 05/29/2018 06:52:26 Entered By: Jaden Rosado on 05/29/2018 06:40:00
== END ==
PROVIDERS: Referring Provider Emergency Medicine; Visit Provider Internal Medicine
DX: L03.115 Cellulitis of right lower limb (principal); S81.801A Unspecified open wound, right lower leg, initial encounter; M79.81 Nontraumatic hematoma of soft tissue
CPT/HCPCS: 87070; 87075; 87205; 97597; 99213

== ENCOUNTER → 2018-06-04 13:06 | Outpatient (CLI) | payer MEDICARE, SELFPAY ==
--- NOTE | 2018-06-04 | OV.WND_ITS ---
Progress Note Details Patient Name: Robi Dumont Patient Number: [id number] PatientPatientDate: 06/04/2018 Clinician: Radha Ludwig Clinician Cosigner: Erin Vasquez Physician / Bioinformaticist: Jaden Rosado SUBJECTIVE Chief Complaint This information was obtained from the patient Traumatic leg wound. Allergies Shellfish Containing Products HPI This information was obtained from the patient 06/04/18. Seen by Dr. Rosado. The patient feels his right lower leg pain, swelling , and redness have improved since starting on doxycycline following his last visit. He also does not report drainage from the anterior leg wound but does report some significant pruritis that's most noticeable in the evening. 05/28/18. Seen by Dr. Rosado. The patient's new to our clinic and presents with a right lower leg hematoma that he's just completed a course of clindamycin for due to cellulitis of the leg presumed associated with the hematoma. He wrapped the leg with an TONY bandage and now has a large blister just proximal to the hematoma. He doesn't feel the antibiotics have been very effective and he reports pain and swelling in the leg but no fevers or feeling unwell otherwise. Past Medical History This information was obtained from the patient Patient has a medical history of: Ulcerative colitis Kidney Stones Thyroid Cancer Lymphoma Cataracts Bipolar Melanoma Complaints and Symptoms This information was obtained from the patient Patient complains of: General Notes: I have reviewed and concur with the Review of Systems and Past Family Social History documents completed by the clinician, I have reviewed and concur with the Wound Assessment document completed by the clinician Cardiovascular (Central/Peripheral): Lower extremity (leg) swelling Hematologic/Lymphatic: Bleeding Tendency Integumentary (Hair/Skin/Nails): Open Sore Prior Wound History: Bleeding, Erythema, Pain Patient denies complaints or symptoms related to: Cardiovascular (Central/Peripheral): Intermittent Claudication, Lower extremity (leg) resting pain Constitutional Symptoms (General Health): Chills, Fever Ear/Nose/Mouth/Throat: Hearing Loss / Aid Hematologic/Lymphatic: Bleeding / Clotting Disorders Neurological: Loss of Protective Sensation Psychiatric: Memory Loss Respiratory: Shortness of Breath Additional Information Does patient have a history of Cancer? Yes? Complete all questions.: Yes Location of Cancer: Thyroid, Face Patient underwent Radiation Treatment? If yes, answer question below.: Yes OBJECTIVE Constitutional Vital signs reviewed and noted. Well developed. Alert. Clean appearing.. Height/ Length: 70 in (177.8 cm), Weight: 145 lbs (65.91 kgs), BMI: 20.8, Temperature: 97.7 ?F (36.5 ? C), Pulse: 81 bpm, Respiratory Rate: 18 breaths/min, Blood Pressure: 101/67 mmHg, Pulse Oximetry: 100 %. Ears, Nose, Mouth, and Throat: No clinically significant hearing loss on informal examination. Musculoskeletal: Right anterior lower leg soft tissue swelling; tender without erythema or warmth. Integumentary (Hair, Skin) Refer to appropriate clinician wound documentation for this visit.. Wound #1 Right, Anterior Leg is an acute Full Thickness Cellulitis and has received a status of Not Healed. Initial wound encounter measurements are 0cm length x 0cm width with no measurable depth, with an area of 0 sq cm . No tunneling has been noted. No sinus tract has been noted. No undermining has been noted. There is a moderate amount of serous drainage noted which has no odor. The patient reports a wound pain of level 0/10. The wound margin is attached. Wound bed has Yes epithelialization, No eschar, No slough, No granulation. The periwound skin moisture is normal. The periwound skin exhibited: Edema, Erythema, Hemosiderosis. The temperature of the periwound skin is Warm. Periwound skin presents with s/s of infection. Confirmation Description and Treatment Plan is: Signs and Symptoms Present. Local Pulse is Palpable. Neurological: Cranial nerves grossly intact with symmetric function normal by informal observation.. ASSESSMENT Active Problems ICD-10 (Encounter Diagnosis) S81.801D - Unspecified open wound, right lower leg, subsequent encounter (Encounter Diagnosis) L03.115 - Cellulitis of right lower limb (Encounter Diagnosis) M79.9 - Soft tissue disorder, unspecified (Encounter Diagnosis) L29.8 - Other pruritus PLAN Wound Orders: Wound #1 Right, Anterior Leg Cleanser May Shower. Dressings Primary dressing: - Bordered foam for 5 days to protect skin. Change Dressing: - Every other day Additional Orders: Follow-Up Appointments Other information: If you develop fever, chills, increased pain, drainage, redness or swelling please call our office. If after hours, respond to the ER. Should you experience any significant changes in your wound(s) or have any questions regarding your home care instructions please contact the wound center @ [phone]. If after hours, contact your primary care physician or go to the hospital emergency room. Scribing Attestation I attest, as the nurse, that I scribed these orders for the physician. General Notes: Use ice to help with itching. Wear compression stocking but if it itches remove. I've reviewed the clinician's documentation and agree with the evaluation and plan as written. Also, the patient will complete his course of doxycycline as prescribed and I' ve advised him to try Benadryl in the evening if the pruritus returns. This may be related to the resolving hematoma or possibly his compression stocking although there's not signs of a rash. Electronic Signature(s) Signed By: Date: Jaden Rosado MD 06/05/2018 07:24:06 Entered By: Jaden Rosado on 06/04/2018 14:04:11
== END ==
PROVIDERS: Visit Provider Internal Medicine
DX: S81.801D Unspecified open wound, right lower leg, subsequent encounter (principal); L03.115 Cellulitis of right lower limb; M79.9 Soft tissue disorder, unspecified; L29.8 Other pruritus
CPT/HCPCS: 99212